=== PATIENT | female | born 1985 | race Caucasian/White ===

== ENCOUNTER 2017-09-08 20:42 | Emergency (ER) | payer OTHER, MEDICAID ==
[~2017-09-08] VITALS: Ht 170.2 cm; Wt 68.0 kg
[~2017-09-08 20:42] MED LIST: LO LOESTRIN FE1 EACH; NORCO 5-325 TA1 EACH PO
[2017-09-08] MEDS ORDERED: PRENA1 CHEW TA1.4 MG (20:56)
[2017-09-08 21:18] LABS: URINE BILIRUBIN NEGATIVE (Negative); URINE BLOOD NEGATIVE (Negative); URINE CLARITY CLEAR; URINE COLOR YELLOW; URINE GLUCOSE-RANDOM 2+ (Negative); URINE KETONES 1+ (Negative); URINE LEUKOCYTES-REFLEX NEGATIVE (Negative); URINE PROTEIN NEGATIVE (Negative); URINE SPECIFIC GRAVITY 1.025 (1.005-1.030); URINE UROBILINOGEN 0.2 E.U./dl (0.2-1.0)
[2017-09-08 21:19] LABS: URINE NITRITE-REFLEX POSITIVE (Negative)
[2017-09-08 21:24] LABS: BACTERIA-REFLEX >30 Many /HPF (None Seen); SQUAMOUS 0-3 Few /LPF (0-3)
[2017-09-08 21:25] LABS: CASTS None Seen /LPF (None Seen); CRYSTALS None Seen /LPF (None Seen); URINE RBC 0-2 Rare /HPF (0-2); URINE WBC-REFLEX 6-15 Few /HPF (0-5)
[2017-09-08 21:37] LABS: ABSOLUTE EOSINOPHILS 0.1 thou/uL (0.0-0.7); ABSOLUTE LYMPHOCYTES 2.3 thou/uL (0.8-5.3); ABSOLUTE MONOCYTES 0.6 thou/uL (0.0-1.2); ABSOLUTE NEUTROPHILS 4.6 thou/uL (1.6-8.1); BASOPHILS 0.5 %; EOSINOPHILS 0.7 %; HEMATOCRIT 34.9 % (37.0-47.0); HEMOGLOBIN 11.8 gm/dL (12.0-15.0); LYMPHOCYTES 30.4 %; MCH 30.8 pg (26.0-34.0); MCHC 33.9 g/dL (28.0-37.0); MCV 90.7 fL (80.0-100.0); MONOCYTES 7.7 %; MPV 8.3 fl. (7.2-11.1); NUCLEATED RBCS 0 /100WBC; PLATELET COUNT* 289 thou/uL (150-400); POLYS 60.7 %; RBC 3.85 mil/uL (4.20-5.00); RDW-CV 13.5 % (10.5-14.5); WBC 7.5 thou/uL (4.0-11.0)
[2017-09-08 21:53] LABS: CALCIUM 8.8 mg/dL (8.5-10.1); CREATININE 0.7 mg/dL (0.6-1.3)
[2017-09-08 21:55] LABS: POTASSIUM 2.6 mmol/L (3.5-5.1)
[2017-09-08 21:59] LABS: ALBUMIN 3.2 g/dL (3.4-5.0); TOTAL BILIRUBIN 0.3 mg/dL (<0.1-1.0); TOTAL PROTEIN 6.9 g/dL (6.4-8.2)
[2017-09-08 22:14] LABS: AMP/METHAMP POSITIVE (Negative); BARBITURATES Negative (Negative); BENZODIAZEPINES Negative (Negative); COCAINE Negative (Negative); METHADONE Negative (Negative); OPIATES Negative (Negative); PCP Negative (Negative); THC POSITIVE (Negative)
[2017-09-08] MEDS ORDERED: POTASSIUM20 PO (23:17)
[2017-09-08] MEDS ORDERED: KEFLEX500 M1 PO (23:17)
[2017-09-08 23:29] VITALS: BP 130/81
--- NOTE | 2017-09-09 17:53 | EKG ---
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 : 1985 Requested By: Amy Hong Order Number: [id number] MD: David Collier Measurements Intervals [place] Rate: 84 P: 55 FL: 127 QRS: 46 QRSD: 95 T: 12 QT: 380 QTc: 450 Interpretive Statements Sinus rhythm RSR' in V1 or V2, probably normal variant Borderline repolarization abnormality No previous ECG available for comparison Electronically Signed On 09-09-2017 17:52:52 CDT by David Collier [email or web address] <ELECTRONICALLY SIGNED> By: David Collier MD, [facility] 09/09/17 1752 D: [id number] David Collier MD, FACC /EPI
== END 2017-09-08 23:30 | disposition home or self-care (01) ==
LOC: M.ERS 20:42
PROVIDERS: Physician Assistant
DX: O23.42 Unspecified infection of urinary tract in pregnancy, second trimester (principal); O26.892 Other specified pregnancy related conditions, second trimester; E87.6 Hypokalemia; F15.10 Other stimulant abuse, uncomplicated; F12.10 Cannabis abuse, uncomplicated; Z3A.17 17 weeks gestation of pregnancy